=== PATIENT | female | born 1970 | race Caucasian/White ===

== ENCOUNTER 2018-06-19 09:23 | Day surgery (SDC) | payer BC ==
--- NOTE | 2018-06-19 07:50 | HP ---
DATE OF SURGERY: 06/19/2018 HISTORY OF PRESENT ILLNESS: The patient is a 48 year-old who for a while increasing in size subcutaneous knot in lower back area question lipoma increasingly uncomfortable. PAST MEDICAL HISTORY: Diabetes, some sleep apnea. She uses a CPAP. PAST SURGICAL HISTORY: She denied any current surgery. MEDICATIONS: Hypertension medication, Metformin, Losartan. ALLERGIES: NKDA. FAMILY HISTORY: Cancer, diabetes. SOCIAL HISTORY: No smoking or alcohol abuse. REVIEW OF SYSTEMS: Twelve systems reviewed. No chest pain or palpitations other systems negative or noncontributory as above and per preadmission questionnaire. PHYSICAL EXAMINATION: GENERAL: No acute distress. HEENT: Sclerae nonicteric. NECK: No JVD. CHEST: Clear to auscultation. CVS: Regular rate and rhythm. ABDOMEN: Soft. EXTREMITIES: No edema. NEURO: Alert, moving extremities symmetrically. No gross motor deficits noted. BACK: Subcutaneous mass question lipoma. IMPRESSION: Enlarging symptomatic back subcutaneous mass question lipoma. I feel the patient will benefit from excisional biopsy. Risks and benefits explained in detail but not limited to bleeding, infection, risk of hematoma or seroma formation. The fact that what we excise likely will not recur but she could get another nodule or lipoma elsewhere on her body or back. She understands and agrees to the planned procedure. Will proceed with excisional biopsy of back subcutaneous mass or lipoma as an outpatient. General risk of anesthesia, deep venous thrombosis, pulmonary embolism, pneumonia but not limited to. General risk of aches, pains, burning or numbness.
[~2018-06-19 09:23] MED LIST: CEFAZOLIN 2 GM-D5W BAG** 2 GM/50 ML ML IV ONE; CEFAZOLIN 2 GM-D5W BAG** 2 GM/50 ML ML IV SCH; Lactated Ringers 1,000 ML IV ONE; Lactated Ringers 1,000 ML IV SCH; Sensorcaine 0.25% 10 ML ONE
[2018-06-19] MEDS ORDERED: SUBLIMAZE 250 MCG/5 ML IJ ONE (09:24)
[2018-06-19] MEDS ORDERED: Zemuron 100 MG/10 ML IV ONE (09:24)
[2018-06-19] MEDS ORDERED: DIPRIVAN 200 MG/20 ML IV ONE (09:24)
[2018-06-19] MEDS ORDERED: BRIDION 200MG/2ML IV ONE (09:24)
[2018-06-19] MEDS ORDERED: Versed 2 MG/2 ML Injection IV ONE (09:36)
[2018-06-19] MEDS ORDERED: Versed 2 MG/2 ML Injection ONE (10:06)
[2018-06-19 13:21] VITALS: O2SAT 99
[2018-06-19 13:22] VITALS: BP 145/76; PULSE 71
--- NOTE | 2018-06-19 13:37 | OP ---
SURGERY DATE/TIME: 06/19/2018 1115 PREOPERATIVE DIAGNOSIS: Enlarging subcutaneous mass or lipoma back. POSTOPERATIVE DIAGNOSIS: Enlarging subcutaneous mass or lipoma back. PROCEDURE: Excisional biopsy of large back lipoma with intermediate closure (approximately 12 cm). SURGEON: Dr. Champ Guadarrama. ANESTHESIA: General. ESTIMATED BLOOD LOSS: Minimal. INDICATIONS: As noted above. Risks and benefits explained in detail and not limited to and consent obtained. The site is confirmed with the patient in the preoperative holding area. DESCRIPTION OF PROCEDURE AND FINDINGS: She is taken to the operating room. General anesthesia introduced. Placed in lateral position, appropriate padding. Positioned per anesthesia and OR staff. The back is prepped and draped in usual sterile fashion. After official time out and no disagreement with planned procedure, transverse incision made overlying this large subcutaneous mass. Dissection carried down to subcu and circumferentially around this lobulated lipomatous density. It is carefully dissected off the underlying fascia and passed off. It measured about 12 cm in size. There was no other palpable localized lipoma in the remainder of subcutaneous fat around the fascia. A couple small perforators were controlled with 3-0 Vicryl suture ligature. Good hemostasis noted. Wound irrigated out. Good hemostasis noted. The deep subcu was then closed down to the level of the fascia with running 3-0 Vicryl and some interrupted 3-0 Vicryl superficial subcu. Skin closed with 4-0 Vicryl and some interrupted 3-0 Prolene used to reinforce the area. Given location on the back Steri-Strips and sterile dressing applied. 0.25% Marcaine local injected along the skin incision. The patient tolerated the procedure well. There were no complications. Findings discussed with the family out in the waiting area.
== END 2018-06-19 13:25 | disposition home or self-care (01) ==
LOC: SDC 09:23
PROVIDERS: ATTEND Surgery
DX: D17.1 Benign lipomatous neoplasm of skin and subcutaneous tissue of trunk (principal); R22.2 Localized swelling, mass and lump, trunk; R20.8 Other disturbances of skin sensation; I10 Essential (primary) hypertension; E11.9 Type 2 diabetes mellitus without complications; Z79.4 Long term (current) use of insulin; G47.30 Sleep apnea, unspecified; Z79.899 Other long term (current) drug therapy
CPT/HCPCS: 82962; 94250; J0690; J2250; J2704; J3010; L0625